=== PATIENT | female | born 1960 | race Caucasian/White ===

== ENCOUNTER → 2020-06-21 | Outpatient (CLI) | payer OTHER ==
[~2020-06-21] MED LIST: HYDROCHLOROTHIA25 MG PO; MELOXICAM7.5 MG PO; OMEPRAZOLE40 MG PO
== END ==
LOC: US 11:20
PROVIDERS: ATTEND Internal Medicine
DX: R10.10 Upper abdominal pain, unspecified (principal); K30 Functional dyspepsia
CPT/HCPCS: 76705

== ENCOUNTER → 2020-06-28 | Outpatient (CLI) | payer OTHER | LOC: NM 12:01 | PROVIDERS: ATTEND Internal Medicine | DX: K82.9 Disease of gallbladder, unspecified (principal) | CPT/HCPCS: 78227; A9537 ==

== ENCOUNTER 2024-10-22 09:30 | Emergency (ER) | payer OTHER ==
[~2024-10-22] VITALS: Ht 152.4 cm; Wt 108.9 kg
[2024-10-22 10:15] VITALS: TEMP 98.4
[2024-10-22] MEDS: ORPHENADRINE CITRATE 30 MG/ML VIAL IM ONE (10:52)
[2024-10-22] MEDS: ONDANSETRON HCL 4 MG ORAL DISINTEGRATING TAB PO ONE (10:53)
[2024-10-22] MEDS: HYDROCODONE/APAP 5MG-325MG TAB PO ONE (10:53)
[2024-10-22] MEDS ORDERED: METHOCARBAMOL750 MG PO (12:01)
[2024-10-22 12:24] VITALS: PULSE 70; RESP 18; O2SAT 100
== END 2024-10-22 12:28 | disposition home or self-care (01) ==
LOC: ER 10:38
DX: M25.552 Pain in left hip (principal); M79.652 Pain in left thigh; S76.812A Strain of other specified muscles, fascia and tendons at thigh level, left thigh, initial encounter; Y93.E6 Activity, residential relocation; Y92.89 Other specified places as the place of occurrence of the external cause; I10 Essential (primary) hypertension; K21.9 Gastro-esophageal reflux disease without esophagitis; M19.09 Primary osteoarthritis, other specified site
CPT/HCPCS: 93971; 99283; J2360; Q0162